=== PATIENT | female | born 1990 | race Caucasian/White ===

== ENCOUNTER 2021-04-24 10:33 | Emergency (ER) | payer MEDICAID ==
[~2021-04-24] VITALS: Ht 152.4 cm; Wt 59.0 kg
[2021-04-24 10:40] VITALS: BP_SYST 132
--- NOTE | 2021-04-24 10:47 | NUR ---
pt.bib boyfriend from home with c/o sores to tongue, sore throat, fatigue and previous fever X 3days
--- NOTE | 2021-04-24 10:48 | NUR ---
Patient to ER bed 4 to gown for evaluation. Side rails up. Report given to Tonya.
[2021-04-24] MEDS ORDERED: IBUP-1969 PO (11:14)
[2021-04-24] MEDS ORDERED: AMOX-423 PO (11:14)
[2021-04-24] MEDS ORDERED: ACYC200C31 PO (11:14)
--- NOTE | 2021-04-24 11:26 | NUR ---
DR CH AT BEDSIDE FOR EXAM
--- NOTE | 2021-04-24 11:50 | NUR ---
Patient given written and verbal discharge instructions and verbalizes understanding. ER MD discussed with patient the results and treatment provided. Patient in stable condition. ID arm band removed. Rx of ACYCLOVEIR, MOTRIN given. Patient educated on pain management and to follow up with PMD. Pain Scale . Opportunity for questions provided and answered. Medication side effect fact sheet provided.
== END 2021-04-24 11:50 | disposition home or self-care (01) ==
LOC: SED 10:33
DX: K13.79 Other lesions of oral mucosa (principal); B00.9 Herpesviral infection, unspecified
CPT/HCPCS: 81002; 81025; 99283